=== PATIENT | female | born 1945 | race Caucasian/White ===

== ENCOUNTER 2022-04-03 11:52 | Outpatient (CLI) | payer MEDICARE, SELFPAY ==
--- NOTE | ~2022-04-03 | XR_ITS ---
XR knee LT 3V DATE: 04/03/2022 12:23 INDICATION: Bilateral primary osteoarthritis of the knee TECHNIQUE: [place] and standing AP and lateral views COMPARISON: None FINDINGS: Mild tricompartment osteoarthritis. No fracture or dislocation or joint effusion. No perios teal reaction or bone destruction. No radiopaque intra-articular loose body. IMPRESSION: Mild tricompartment osteoarthritis Reviewed, dictated and finalized at location B. [employer] SUPERVISOR
--- NOTE | ~2022-04-03 | XR_ITS ---
XR knee RT 3V DATE: 04/03/2022 12:23 INDICATION: Bilateral primary knee osteoarthritis TECHNIQUE: [place] and standing AP and lateral views COMPARISON: None FINDINGS: There is tricompartment osteophytosis, most prominent at the lateral compartment. There is chondrocalcinosis of the medial and lateral menisci. No fracture or dislocation or joint effusion, periosteal reaction or bone destruction. IMPRESSION: Tricompartment osteophytes arthritis, most severe at the lateral compartment Chondrocalcinosis Reviewed, dictated and finalized at location B. ER ASSISTANT IMPRESSION: Tricompartment osteophytes arthritis, most severe at the lateral co mpartment Chondrocalcinosis
== END 2022-04-03 11:53 | disposition home or self-care (01) ==
PROVIDERS: PCP Family Medicine; Visit Provider Family Medicine
DX: M17.0 Bilateral primary osteoarthritis of knee (principal)
CPT/HCPCS: 73562

== ENCOUNTER 2022-06-05 13:30 | Outpatient (RCR) | payer MEDICARE, SELFPAY ==
--- NOTE | 2022-04-16 16:55 | PTOPEVAL1 ---
Assessment and note entered by Glendy Peterson, PT Evaluation Information Assessment Status Evaluation Diagnosis knee pain bilat Subjective Information Reports last 6 months pain has been the worse. Reports knees have been bothering her about a year . Prior to this thought it was her back causing issues cause she has had 2 back surgeries in her upper and lower back. Beginning of last year started pain management in [place], but the knee pain got worse after this, states was getting injections in lower back. Has not had any in her knees. Reported Pain Level Pain Score 6,4: Self Report Assessment PT Clinical Summary Pt presents w/ c/o bilat knee pain that has been ongoing for the past year, worsening the most in the last 6 months. Her evaluation shows bilat knee valgus L>R, laterally deviated patella bilat, decreased AROM and PROM, abnormal gait, and decreased strength with sit<>stand testing. Pt will greatly benefit from physical therapy to address overall ROM, strength, alignment, muscle activation patterns, balance and gait in order to improve her pain, mobility, and activities of daily living. Plan of Care Interventions Electrical Stimulation,Gait Training,Hot Pack/Cold Pack,Manual Therapy,Neuro Re-education,Patient/ Caregiver Educati,Therapeutic Activities, Therapeutic Exercise,Self-Care/Home Management, Ultrasound PT Services Indicated Yes Treatment Frequency and 1-2x/wk x 8 weeks Duration These treatments will address the objective and functional deficits as defined above. The patient will be advanced safely and appropriately in order for the patient to progress towards his/her prior level of function. Additional exercises will be introduced and as well as a comprehensive home exercise program upon discharge, if needed, ?to ensure carryover of functional gains achieved in the clinic. This treatment plan has been reviewed and agreement upon by the patient.
--- NOTE | 2022-05-08 18:05 | BUPTOPEVAL1 ---
Assessment and note entered by Glendy Peterson, PT Evaluation Information Assessment Status Progress Report Diagnosis knee pain bilat Subjective Information reports feeling 50% improved overall in her knees. Cont to have burning sensation in legs. Reported Pain Level Pain Score 1,2: Self Report Assessment PT Clinical Summary Pt presents w/ c/o bilat knee pain that has been ongoing for the past year, worsening the most in the last 6 months. She demo's greatly improved ROM of her knees deondre in flexion, improved gastroc length, improved tolerance to exercises. She cont bilat knee valgus L>R, laterally deviated patella bilat, abnormal gait, and decreased strength with sit<>stand testing. She has yet to plateau in therapy services. Pt will greatly benefit from continues physical therapy to address strength, alignment, muscle activation patterns, balance and gait in order to improve her pain, mobility, and activities of daily living. Plan of Care Interventions Electrical Stimulation,Gait Training,Hot Pack/Cold Pack,Manual Therapy,Neuro Re-education,Patient/ Caregiver Educati,Therapeutic Activities, Therapeutic Exercise,Self-Care/Home Management, Ultrasound PT Services Indicated Yes Treatment Frequency and 2x/wk x 4 weeks Duration These treatments will address the objective and functional deficits as defined above. The patient will be advanced safely and appropriately in order for the patient to progress towards his/her prior level of function. Additional exercises will be introduced and as well as a comprehensive home exercise program upon discharge, if needed, ?to ensure carryover of functional gains achieved in the clinic. This treatment plan has been reviewed and agreement upon by the patient.
--- NOTE | 2022-06-05 16:50 | PTOPDC ---
Assessment and note entered by Glendy Peterson, PT Assessment Status Discharge Diagnosis knee pain bilat Subjective Information reports feeling 50% improved overall in her knees which has maintained since last reevaluation. Cont to have burning sensation in legs. Does feel steadier in her knees and that her new orthotics are really helping too. Reported Pain Level Pain Score 2,4: Self Report Assessment PT Clinical Summary Pt reports knee pain feeling 50% improved overall. Reports feeling more stable on her feet. However cont to have pain and sharp pains at times with fear of knee giving out. Pt educated on progression of shoe inserts and orthotics to assist in continuation of improving knee pain, finalized home exercise program to continue improvement. Pt has a consult with an Orthopeadic MD to discusse further options for her knees as well. Thus patient is being discharged at this time for max benefit met currently.
== END 2022-06-06 09:14 | disposition home or self-care (01) ==
LOC: ANHHIPT 13:30
PROVIDERS: PCP Family Medicine; Visit Provider Family Medicine
DX: M17.0 Bilateral primary osteoarthritis of knee (principal); M19.90 Unspecified osteoarthritis, unspecified site
CPT/HCPCS: 97014; 97110; 97161; 97530; G0283